=== PATIENT | female | born 2005 | race Caucasian/White ===

== ENCOUNTER 2024-02-05 23:09 | Emergency (ER) | payer OTHER, SELFPAY ==
[2024-02-05 23:15] VITALS: BP 120/72
--- NOTE | 2024-02-05 23:38 | ED.GENMED ---
History of Present Illness
General
Chief Complaint: Abdominal Pain
Source: patient
Exam Limitations: none
Time Seen by Provider: 02/05/24 23:26
History of Present Illness
History of Present Illness:
This is a 18 year old female that comes in with c/o right lower abd pain. States that she is about 7 weeks and she awoke this morning with some nausea. States that she thought it was just morning sickness. Then she started with right sided
abd pain to the point the pain was so bad that she was hunched over. States that she continued with nausea and then started vomiting tonight. States that she has a slight headache, occasional dizziness. Denies any fever, chills, chest pain, SOB,
diarrhea, urinary burning.
Past History
Past History
ED Past Medical History: Other (ear infections)
ED Past Surgical History: Other (Myringotomy tubes)
Social History
Tobacco: Former smoker
Alcohol: None
Personal: Single
Living: with family
Review of Systems
Review of Systems
All Other Systems: ROS reviewed and negative except as documented in HPI and ROS
Constitutional: Reports no symptoms; Denies fever or chills
EENT: Reports no symptoms
Respiratory: Reports no symptoms; Denies cough or trouble breathing
Cardiac: Reports no symptoms; Denies chest pain
ABD/GI: Reports abdominal pain (RLQ), nausea and vomiting; Denies diarrhea
: Reports no symptoms; Denies dysuria, frequency or urgency
Musculoskeletal: Reports no symptoms
Skin: Reports no symptoms
Neurological: Reports dizzy (occasional) and headache (Slight)
Psychiatric: Reports no symptoms
Phy Exam
General Physical Exam
General Presentation: well appearing and no apparent distress
General age: appears stated age
General Skin: warm and dry
General Habitus: normal
General Mental: alert
General Hydration: appears well hydrated
ENT Exam
ENT Exam: TM's normal, pharynx normal and neck supple
Eye Exam
Eye Exam: EOMI
Cardiovascular Exam
Cardiovascular Exam: regular rate/rhythm, no edema, no murmur and normal peripheral pulses
Pulmonary Exam
Pulmonary Exam: lungs clear, no respiratory distress, no rales, chest non tender, no crackles, no rhonchi, no wheezing and no cough
Gastrointestinal Exam
Gastrointestinal Exam: normal bowel sounds, soft, no organomegaly, no pulsatile mass, non distended and tender (right lower abd tenderness with palpation)
Musculoskeletal Exam
Musculoskeletal Exam: full ROM and no edema
Skin Exam
Skin Exam: normal color, warm/dry, no rash and no petechia
Psychiatric Exam
Psychiatric Exam: normal mood/affect
Course
Orders/Labs/Results
Orders:
Orders
02/05/24 23:37
0.9% Sodium Chloride 1000 ml [Nss] 1,000 ml IV BOLUS
02/05/24 23:38
Urinalysis Reflex To Culture Urgent
Date Specimen was Collected: 02/06/24
Time Specimen was Collected: 01:33
02/05/24 23:45
Type And Crossmatch [Type+Screen] Urgent
Complete Blood Count/With Diff Urgent
Comprehensive Metabolic Panel Urgent
HCG,SERUM [Beta HCG Quantitative] Urgent
Is this a screen?: No
Comment: is
02/06/24 00:00
US Abdomen - Appendix Only Urgent
Reason For Exam: RLQ abd pain
US 1st Trimester Urgent
Reason For Exam: RIGHT LOWER ABD PAIN
02/06/24 00:29
ABO2 Urgent
BBK Wristband Number:
Associate notified that ABO2 has been ordered: [id number]
Date: 02/06/24
Time: 00:15
Cardiology Manager ID: [id number]
Abnormal Lab Results
02/05/24
23:45
Absolute Monos (auto) 0.8 H 10^3/uL
(0.1-0.6)
Carbon Dioxide 20 L mmol/L
(22-30)
Creatinine 0.5 L mg/dL
(0.6-1.0)
02/05/24 23:45
02/05/24 23:45
carbon dioxide slightly low. HCG 32992.00,, AB negative.
Vital Signs
Initial and Last Documented VS:
Initial Vital Signs
Temp Pulse Resp BP Pulse Ox
98.6 F 97 18 120/72 97
02/05/24 23:15 02/05/24 23:15 02/05/24 23:15 02/05/24 23:15 02/05/24 23:15
Last Documented Vital Signs
Temp Pulse Resp BP Pulse Ox
98.6 F 97 16 106/69 98
02/05/24 23:15 02/05/24 23:15 02/06/24 00:33 02/06/24 00:48 02/06/24 00:48
Information
Weeks gestation: Weeks: (6 weeks 1 days)
Location: Location: (Intrauterine sac. )
MDM/Problems Addressed
Differential Diagnosis Includes:
Tubal , Appendicitis
MDM/Problems Addressed:
This is a 18 year old female that comes in with c/o right lower abd pain. States that she is about 7 weeks .
Will check labs, Pelvic ultrasound and US for appendicitis.
back into see patient. Explained that she has an Intrauterine sac but no embryo is seen as she is to early. Patient to follow up with the UNIX MANAGER. Return with any bleeding or any other concerns.
Spoke with Dr. Grider and patient at this time does not need RHoGam.
Chronic conditions affecting care:
NA
Acute Exacerbation and/or Progression of Chronic Illness:
NA
*Radiology
Radiology exam reviewed: radiology read reviewed (US night hawk- Single intrauterine gestation at 6 weeks 1 day by mean sac diameter. A yolk sac and gestational sac are identified. No embryo is seen, however, it is likely due to the early stage in
gestation. No free fluid. NO adnexal masses. Normal-sized ovaries containing doppler flow. ) and other (US appendix= The appendix is not visualized. No free fluid in the right lower quadrant.)
*Pulse Oximetry
Patient hypoxic: no
*EKG
Interpreted by ED Provider?: NA
Rate: EKG- N/A
*Coffee Maker Servicer Interpretation
Rate: Coffee Maker Servicer- N/A
*Critical Care Note
Total Time (30-74mins, 75-104mins- exclusive of procedures): Not Applicable
ED Attending Note
-
Portions of this chart may have been created with voice recognition software.� Occasional wrong word or��sound alike� substitutions may have occurred due to the inherent limitations of voice recognition software.
Discharge Plan
Departure
Patient Disposition: Home (Routine Discharge)
Date of Disposition: 02/06/24
Time of Disposition: 01:56
Patient with high blood pressure during this ER visit?: No
Condition: Good
Covid-19: Not Applicable
Discharge Problem:
at early stage
Instructions: - The Second Month
Prescriptions:
No Action
Vitamin Tablet
1 tab PO DAILY
folic acid 1 mg Tablet
1 mg PO DAILY
Referrals:
Angela Grider DO [Active] - Follow up in 5-7 days
Marisol Whitehead MD [Family Provider] -
Activity Restrictions/Additional Instructions:
As discussed, your blood work is normal. Your Ultrasound shows a very early with a gestation sac of about 6 weeks 1 days. There is no embryo seen as you are very early. Please follow up with your UNIX MANAGER for further evaluation and
monitoring of your blood levels. There is no sign of any masses in the tubes. IF YOU HAVE ANY OTHER CONCERNS PLEASE RETURN TO THE EMERGENCY ROOM .
Interventions
Interventions:
*Risk Screen - Suicide Last Done: 02/05/24 23:10
*General Assessment Last Done: 02/05/24 23:10
*Neglect/Abuse Screening Last Done: 02/05/24 23:10
ED- Fall Risk Assessment Last Done: 02/05/24 23:31
*ED COVID-19 Vaccine History Last Done: 02/05/24 23:16
JV-Myskel-Otiftwpxfp Assessment Last Done: 02/05/24 23:31
Discharge Date and Time
Print Language: FIJIAN
[2024-02-05] MEDS: NSS 1000 IV (23:53)
[2024-02-05 23:57] LABS: % Basophils 0.5 % (0-2); % Eosinophils 2.3 % (0-6); % Immature Granulocytes 0.3 % (0-0.5); % Lymphocytes 31.8 % (20.5-51.1); % Monocytes 7.9 % (1.7-9.3); % Neutrophils 57.2 % (42.2-75.2); Absolute Basophils 0.1 10^3/uL (0-0.2); Absolute Eosinophils 0.2 10^3/uL (0-0.7); Absolute Lymphocytes 3.2 10^3/uL (1.2-3.4); Absolute Monocytes 0.8 10^3/uL (0.1-0.6); Absolute Neutrophils 5.7 10^3/uL (1.4-6.5); Hematocrit 37.8 % (37.0-47.0); Hemoglobin 12.5 g/dL (12.0-16.0); Mean Corp Hgb Conc. 33.1 g/dL (33.0-37.0); Mean Corpuscular Hgb 28.4 pg (27.0-31.0); Mean Corpuscular Volume 85.9 fL (81.0-99.0); Mean Platelet Volume 10.3 fL (7.4-10.4); Nucleated Red Blood Cells % 0 %; Platelet Count 261 10^3/uL (130-400); Red Cell Dist. Width 13.4 % (11.5-14.5)
[2024-02-06 00:15] LABS: ALT (SGPT) 21 U/L (0-35); AST (SGOT) 22 U/L (14-36); Albumin 4.7 g/dl (3.5-5.0); Alkaline Phosphatase 59 U/L (38-126); Blood Urea Nitrogen 12 mg/dl (7-17); Calcium 9.9 mg/dl (8.4-10.2); Carbon Dioxide 20 mmol/L (22-30); Chloride 106 mmol/L (98-107); Glucose 93 mg/dl (70-99); Potassium 4.2 mmol/L (3.5-5.1); Sodium 140 mmol/L (135-145); Total Bilirubin 0.2 mg/dl (0.2-1.3); Total Protein 8.1 g/dl (6.3-8.2); eGFR > 60.00
[2024-02-06 00:30] VITALS: BP 103/76
[2024-02-06 00:48] VITALS: BP 106/69
[2024-02-06 01:41] LABS: Urine Albumin Negative (Neg - Trace); Urine Bilirubin Negative (Negative); Urine Character Clear (Clear); Urine Color Yellow; Urine Glucose Negative (Negative); Urine Ketone Negative (Negative); Urine Leukocyte Negative (Negative); Urine Nitrite Negative (Negative); Urine Occult Blood Negative (Negative); Urine Specific Gravity 1.025 (<1.030); Urine Urobilinogen Negative (Neg - 1+)
[2024-02-06 01:51] VITALS: BP 119/71
== END 2024-02-06 02:35 | disposition home or self-care (01) ==
LOC: EMR 23:09
PROVIDERS: Clinical Nurse Specialist Family Health; EMERGENCY PHYSICIAN Student in an Organized Health Care Education/Training Program; FAMILY PHYSICIAN Family Medicine
DX: O26.891 Other specified pregnancy related conditions, first trimester (principal); Z3A.01 Less than 8 weeks gestation of pregnancy; Z87.891 Personal history of nicotine dependence
CPT/HCPCS: 99284; 96360; 76705; 76801; 80053; 81003; 84702; 85025; 86850; 86900; 86901

== ENCOUNTER 2024-04-23 20:39 | Emergency (ER) | payer OTHER, SELFPAY ==
[2024-04-23 20:41] VITALS: BP 112/68
[2024-04-23 21:02] LABS: % Basophils 0.2 % (0-2); % Eosinophils 0.3 % (0-6); % Immature Granulocytes 0.8 % (0-0.5); % Lymphocytes 15.8 % (20.5-51.1); % Monocytes 10.5 % (1.7-9.3); % Neutrophils 72.4 % (42.2-75.2); Absolute Immature Granulocytes 0.1 10^3/uL (0-0.05); Absolute Monocytes 0.7 10^3/uL (0.1-0.6); Absolute Neutrophils 4.8 10^3/uL (1.4-6.5); Hematocrit 32.2 % (37.0-47.0); Hemoglobin 10.8 g/dL (12.0-16.0); Mean Corp Hgb Conc. 33.5 g/dL (33.0-37.0); Mean Corpuscular Hgb 28.5 pg (27.0-31.0); Mean Platelet Volume 10.5 fL (7.4-10.4); Nucleated Red Blood Cells % 0 %; Platelet Count 180 10^3/uL (130-400); Red Blood Cell Count 3.79 10^6/uL (4.20-5.40); White Blood Cell Count 6.6 10^3/uL (4.8-10.8)
[2024-04-23 21:18] LABS: ALT (SGPT) 15 U/L (0-35); AST (SGOT) 21 U/L (14-36); Albumin 3.6 g/dl (3.5-5.0); Alkaline Phosphatase 64 U/L (38-126); Blood Urea Nitrogen 7 mg/dl (7-17); Calcium 9.4 mg/dl (8.4-10.2); Carbon Dioxide 24 mmol/L (22-30); Chloride 103 mmol/L (98-107); Glucose 93 mg/dl (70-99); Lipase 332 U/L (23-300); Potassium 3.8 mmol/L (3.5-5.1); Sodium 133 mmol/L (135-145); Total Bilirubin 0.4 mg/dl (0.2-1.3); Total Protein 6.9 g/dl (6.3-8.2); eGFR > 60.00
[2024-04-23 21:22] LABS: COVID-19 Antigen Negative (Negative)
[2024-04-23 23:08] VITALS: BP 110/67; BMI 28.3
--- NOTE | 2024-04-23 23:51 | ED.GENMED ---
History of Present Illness
General
Chief Complaint: Cold/Flu/URI Symptoms
Time Seen by Provider: 04/23/24 23:05
History of Present Illness
History of Present Illness:
18-year-old female currently 18 weeks presenting with flulike symptoms for the past 4 days. Patient reports chills, cough, sore throat, nausea, vomiting, abdominal cramping for the past 4 days. Patient denies vaginal bleeding. No known
sick contacts.
Past History
Past History
ED Past Medical History: Other (ear infections)
ED Past Surgical History: Other (Myringotomy tubes)
Social History
Tobacco: Former smoker
Alcohol: None
Personal: Single
Living: with family
Phy Exam
Physical Exam
Physical Exam:
General: Alert, no acute distress
Head: NCAT
Eyes: clear conjunctiva
Neck: supple
Cardiac: regular rate and rhythm, no murmur
Lungs: clear to auscultation bilaterally. No wheezes, rales, or rhonchi. Speaking full unlabored sentences. No respiratory distress.
Abdomen: gravid, nontender. No rebound or guarding.
MSK: no lower extremity edema bilaterally. No deformity
Skin: warm, dry
Neuro: Alert and oriented x3. no focal deficits
Course
Orders/Labs/Results
Orders:
Orders
04/23/24 20:51
Beta HCG Quantitative Urgent
Is this a screen?: No
COVID-19 Antigen Urgent
Source: Nasal Swab
Complete Blood Count/With Diff Urgent
Comprehensive Metabolic Panel Urgent
Lipase Urgent
Influenza A+B Rapid Molecular Urgent
WOLF Source: Nasal Swab
Specimen Description:
Abnormal Lab Results
04/23/24
20:51
RBC 3.79 L 10^6/uL
(4.20-5.40)
Hgb 10.8 L g/dL
(12.0-16.0)
Hct 32.2 L %
(37.0-47.0)
MPV 10.5 H fL
(7.4-10.4)
Abs Immat Gran (auto) 0.1 H 10^3/uL
(0-0.05)
Absolute Lymphs (auto) 1.0 L 10^3/uL
(1.2-3.4)
Absolute Monos (auto) 0.7 H 10^3/uL
(0.1-0.6)
Immature Gran % 0.8 H %
(0-0.5)
Lymphocytes % 15.8 L %
(20.5-51.1)
Monocytes % 10.5 H %
(1.7-9.3)
Sodium 133 L mmol/L
(135-145)
Creatinine 0.5 L mg/dL
(0.6-1.0)
Lipase 332 H U/L
(23-300)
04/23/24 20:51
04/23/24 20:51
Vital Signs
Initial and Last Documented VS:
Initial Vital Signs
Temp Pulse Resp BP Pulse Ox
98.3 F 101 16 112/68 100
04/23/24 20:41 04/23/24 20:41 04/23/24 20:41 04/23/24 20:41 04/23/24 20:41
Last Documented Vital Signs
Temp Pulse Resp BP Pulse Ox
99.9 F 101 18 110/67 99
04/23/24 23:08 04/23/24 23:08 04/23/24 23:08 04/23/24 23:08 04/23/24 23:08
MDM/Problems Addressed
Differential Diagnosis Includes:
Viral infection, electrolyte abnormality, RAJINDER
MDM/Problems Addressed:
18-year-old female currently 18 weeks presenting with flulike symptoms for the past 4 days. Labs reviewed, influenza A positive. WBC 6.6, hemoglobin 10.8, electrolytes/LFTs within normal limits. Lipase slightly elevated at 332.
Discussed results with patient at bedside. Patient requesting Jell-O, declines Zofran at this time. Will reevaluate
On reevaluation, patient tolerating applesauce with no episodes of vomiting. heart rate 156. Discussed results with patient at bedside. Stable for discharge with [employer] follow-up. Will give prescription for tamiflu and Zofran
*Critical Care Note
Total Time (30-74mins, 75-104mins- exclusive of procedures): Not Applicable
ED Attending Note
-
Portions of this chart may have been created with voice recognition software.� Occasional wrong word or��sound alike� substitutions may have occurred due to the inherent limitations of voice recognition software.
Discharge Plan
Departure
Patient Disposition: Home (Routine Discharge)
Date of Disposition: 04/23/24
Time of Disposition: 23:59
Patient with high blood pressure during this ER visit?: No
Discharge Problem:
Influenza A
Instructions: Flu in adults - Discharge instructions
Prescriptions:
New
ondansetron 4 mg tablet,disintegrating
4 mg PO TID 5 Days Qty: 15 0RF
oseltamivir [Tamiflu] 75 mg capsule
75 mg PO BID 5 Days Qty: 10 0RF
No Action
Vitamin Tablet
1 tab PO DAILY
folic acid 1 mg Tablet
1 mg PO DAILY
Referrals:
Marisol Whitehead MD [Family Provider] -
Activity Restrictions/Additional Instructions:
Take tylenol 975mg every 6 hours as needed for fever/pain
Take tamiflu as prescribed. It can cause nausea/vomiting/diarrhea. If you develop these symptoms, stop taking it
Take zofran as needed for nausea
Follow up with OBGYN in 1-2 days
Return to the emergency department for inability to tolerate liquids, vaginal bleeding or new/worsening symptoms
Interventions
Interventions:
*Risk Screen - Suicide Last Done: 04/23/24 20:41
*General Assessment Last Done: 04/23/24 23:08
*Neglect/Abuse Screening Last Done: 04/23/24 20:41
ED- Fall Risk Assessment Last Done: 04/23/24 23:08
*ED COVID-19 Vaccine History Last Done: 04/24/24 00:10
*Nursing Disposition Last Done: 04/24/24 00:10
IP-Ctadvj-Czqkbssagu Assessment Last Done: 04/23/24 23:08
ED- Pulmonary Assessment Last Done: 04/23/24 23:08
Discharge Date and Time
Discharge Date/Time: 04/24/24 00:10
Print Language: FAROESE
== END 2024-04-24 00:10 | disposition home or self-care (01) ==
LOC: EMR 20:39
PROVIDERS: Student in an Organized Health Care Education/Training Program; EMERGENCY PHYSICIAN Emergency Medicine; FAMILY PHYSICIAN Family Medicine
DX: O99.512 Diseases of the respiratory system complicating pregnancy, second trimester (principal); J10.1 Influenza due to other identified influenza virus with other respiratory manifestations; Z87.891 Personal history of nicotine dependence; Z3A.18 18 weeks gestation of pregnancy
CPT/HCPCS: 99283; 80053; 83690; 84702; 85025; 87502; 87811

== ENCOUNTER → 2024-08-23 12:07 | Outpatient (REF) | payer OTHER, SELFPAY | LOC: PNTC 12:07 | PROVIDERS: ATTENDING PHYSICIAN Obstetrics & Gynecology | DX: Z34.90 Encounter for supervision of normal pregnancy, unspecified, unspecified trimester (principal) | CPT/HCPCS: 36415; 86850; 86900; 86901; 96372; J2790 ==

== ENCOUNTER 2024-08-27 21:00 | Observation (INO) | payer OTHER, SELFPAY ==
[2024-08-27 21:23] VITALS: BMI 30.9
== END 2024-08-27 22:39 | disposition home or self-care (01) ==
LOC: LDRP 21:00
PROVIDERS: ADMITTING PHYSICIAN Obstetrics & Gynecology; FAMILY PHYSICIAN Family Medicine
DX: O47.03 False labor before 37 completed weeks of gestation, third trimester (principal); O26.893 Other specified pregnancy related conditions, third trimester; Z67.91 Unspecified blood type, Rh negative; Z3A.36 36 weeks gestation of pregnancy
CPT/HCPCS: 59025; G0378

== ENCOUNTER 2024-09-29 19:28 | Inpatient (IN) | payer OTHER, SELFPAY ==
[2024-09-29 19:39] VITALS: BP 125/80; BMI 32.4
[2024-09-29 20:55] LABS: Hematocrit 31.4 % (37.0-47.0); Hemoglobin 10.6 g/dL (12.0-16.0); Mean Corp Hgb Conc. 33.8 g/dL (33.0-37.0); Mean Corpuscular Volume 84.4 fL (81.0-99.0); Nucleated Red Blood Cells % 0 %; Platelet Count 148 10^3/uL (130-400); Red Cell Dist. Width 15.0 % (11.5-14.5)
[2024-09-29] MEDS: CYTOTEC 25 MICROGRAM VAG (22:46)
[2024-09-30] MEDS: STADOL 1 MG IV (03:40)
[2024-09-30] MEDS: LR 1000 IV ×3 (06:18→15:55)
[2024-09-30] MEDS: SUBLIMAZE 100 MCG EPIDURAL (08:46)
[2024-09-30] MEDS: FENTANYL/BUPIVACAINE 100 EPIDURAL ×2 (08:47→16:39)
[2024-09-30] MEDS: PITOCIN 30 UNITS/NSS 500 ML IV ×2 (13:49→20:28)
[2024-09-30] MEDS: MOTRIN 600 MG PO (23:49)
[2024-10-01 04:34] LABS: Hematocrit 29.2 % (37.0-47.0); Hemoglobin 9.8 g/dL (12.0-16.0)
[2024-10-01] MEDS: COLACE 100 MG PO ×2 (07:55→20:15)
[2024-10-01] MEDS: PRENATAL PLUS 1 TABLET PO (07:55)
[2024-10-01] MEDS: MOTRIN 600 MG PO ×2 (08:00→16:57)
[2024-10-01] MEDS: RHOGAM 300 MCG IM (12:09)
[2024-10-01 13:19] LABS: Syphilis/T. pallidum Ab Reflex Negative (Negative)
[2024-10-01] MEDS: FEOSOL 325 MG PO (14:14)
[2024-10-02] MEDS: MOTRIN 600 MG PO (05:01)
[2024-10-02] MEDS: PRENATAL PLUS 1 TABLET PO (08:49)
[2024-10-02] MEDS: COLACE 100 MG PO (08:49)
[2024-10-02] MEDS: FEOSOL 325 MG PO (08:49)
== END 2024-10-02 11:57 | disposition home or self-care (01) | DRG 807 ==
LOC: LDRP 19:28
PROVIDERS: Obstetrics & Gynecology; ADMITTING PHYSICIAN Obstetrics & Gynecology
PROC: 3E0P7VZ Introduction of Hormone into Female Reproductive, Via Natural or Artificial Opening (ICD-10-PCS; 2024-09-29)
PROC: 10E0XZZ Delivery of Products of Conception, External Approach (ICD-10-PCS; 2024-09-30)
PROC: 3E0234Z Introduction of Serum, Toxoid and Vaccine into Muscle, Percutaneous Approach (ICD-10-PCS; 2024-10-01)
DX: O48.0 Post-term pregnancy (principal); Z37.0 Single live birth; Z3A.40 40 weeks gestation of pregnancy
CPT/HCPCS: 85014; 85018; 85025; 85461; 86780; 86850; 86870; 86900; 86901; J2790